=== PATIENT | female | born 1990 | race Caucasian/White ===

== ENCOUNTER 2018-01-25 21:18 | Inpatient (IN) | payer OTHER ==
[~2018-01-25] VITALS: Ht 160 cm; Wt 82.1 kg
[2018-01-25] MEDS ORDERED: PROBIOTIC1 EAC1 PO (22:21)
[2018-01-25] MEDS ORDERED: PRENATAL 19 TA1 EACH PO (22:21)
[2018-02-04] MEDS ORDERED: FERROUS SULFAT325 MG PO (13:10)
== END 2018-02-04 14:34 | disposition home or self-care (01) | DRG 774 ==
LOC: LDR 21:18 → OB/GYN 21:18
PROC: 10E0XZZ Delivery of Products of Conception, External Approach (ICD-10-PCS; principal; 2018-02-02)
PROC: 0UQGXZZ Repair Vagina, External Approach (ICD-10-PCS; 2018-02-02)
PROC: 0W8NXZZ Division of Female Perineum, External Approach (ICD-10-PCS; 2018-02-02)
PROC: 10907ZC Drainage of Amniotic Fluid, Therapeutic from Products of Conception, Via Natural or Artificial Opening (ICD-10-PCS; 2018-02-02)
PROC: 3E033VJ Introduction of Other Hormone into Peripheral Vein, Percutaneous Approach (ICD-10-PCS; 2018-02-02)
PROC: 4A1HXCZ Monitoring of Products of Conception, Cardiac Rate, External Approach (ICD-10-PCS; 2018-02-02)
DX: O60.14X0 Preterm labor third trimester with preterm delivery third trimester, not applicable or unspecified (principal); O75.3 Other infection during labor; O71.4 Obstetric high vaginal laceration alone; O14.14 Severe pre-eclampsia complicating childbirth; Z3A.36 36 weeks gestation of pregnancy; Z37.0 Single live birth